=== PATIENT | female | born 1965 | race Caucasian/White ===

== ENCOUNTER 2016-09-24 20:06 | Emergency (ER) | payer OTHER ==
[~2016-09-24] VITALS: Ht 162.6 cm; Wt 121.3 kg
[~2016-09-24 20:06] MED LIST: LEVOTHYROXINE100 MCG; ZOLPIDEM TARTRA10 MG
[2016-09-24 22:51] VITALS: BP 157/101
== END 2016-09-24 22:51 | disposition home or self-care (01) ==
LOC: EME 20:06
DX: M79.661 Pain in right lower leg (principal); I25.2 Old myocardial infarction
CPT/HCPCS: 93971; 99281; 99284